=== PATIENT | male | born 1975 | race African-American/Black ===

== ENCOUNTER 2020-01-21 09:05 | Emergency (ER) | payer MEDICAID ==
[~2020-01-21] VITALS: Ht 170.2 cm; Wt 68.0 kg
[2020-01-21 09:17] VITALS: Ht 170.2 cm; Wt 68.0 kg
[2020-01-21 12:20] VITALS: BP 148/100
== END 2020-01-21 12:20 | disposition home or self-care (01) ==
LOC: ED 09:05
DX: J06.9 Acute upper respiratory infection, unspecified (principal); I16.0 Hypertensive urgency

== ENCOUNTER 2020-05-31 16:29 | Emergency (ER) | payer MEDICAID ==
[~2020-05-31] VITALS: Ht 170.2 cm; Wt 65.8 kg
[2020-05-31 16:43] VITALS: Ht 170.2 cm; Wt 65.8 kg
[2020-05-31 17:56] VITALS: BP 174/111
== END 2020-05-31 17:56 | disposition home or self-care (01) ==
LOC: ED 16:29
DX: T23.201A Burn of second degree of right hand, unspecified site, initial encounter (principal); X08.8XXA Exposure to other specified smoke, fire and flames, initial encounter; Y93.89 Activity, other specified; Y92.89 Other specified places as the place of occurrence of the external cause; Y99.8 Other external cause status

== ENCOUNTER 2020-06-02 11:08 | Emergency (ER) | payer MEDICAID ==
[~2020-06-02] VITALS: Ht 170.2 cm; Wt 67.1 kg
[2020-06-02 11:28] VITALS: Ht 170.2 cm; Wt 67.1 kg
[2020-06-02 12:25] VITALS: BP 160/109
== END 2020-06-02 12:25 | disposition home or self-care (01) ==
LOC: ED 11:08
DX: T23.001D Burn of unspecified degree of right hand, unspecified site, subsequent encounter (principal); I10 Essential (primary) hypertension; X58.XXXD Exposure to other specified factors, subsequent encounter

== ENCOUNTER 2020-06-03 10:12 | Emergency (ER) | payer MEDICAID ==
[~2020-06-03] VITALS: Ht 170.2 cm; Wt 65.3 kg
[2020-06-03 10:30] VITALS: Ht 170.2 cm; Wt 65.3 kg
[2020-06-03 11:13] VITALS: BP 150/107
== END 2020-06-03 11:13 | disposition home or self-care (01) ==
LOC: ED 10:12
DX: T23.201D Burn of second degree of right hand, unspecified site, subsequent encounter (principal); T31.0 Burns involving less than 10% of body surface; I10 Essential (primary) hypertension; X08.8XXD Exposure to other specified smoke, fire and flames, subsequent encounter